=== PATIENT | male | born 1970 | race Caucasian/White ===

== ENCOUNTER → 2016-11-06 | Day surgery (SDC) | payer MEDICARE ==
[~2016-11-06] MED LIST: ASPIRIN325 MG PO; IMDUR ER TAB 3030 MG PO; INVOKANA 100 M100 MG PO; KLONOPIN1 MG PO; LINZESS145 MCG PO; LIPITOR TAB 2020 MG PO; LYRICA300 MG PO; PLAVIX 75 MG TA75 MG PO; PROVENTIL HFA 61 INH INH; RANITIDINE HCL300 M1 PO; TENORMIN 50 MG50 MG PO; ZOLOFT100 MG PO
== END | disposition home or self-care (01) ==
LOC: OR 07:48
PROVIDERS: Internal Medicine Gastroenterology
PROC: 0DJD8ZZ Inspection of Lower Intestinal Tract, Via Natural or Artificial Opening Endoscopic (ICD-10-PCS; principal; 2016-11-06 11:15)
DX: K64.0 First degree hemorrhoids (principal); K59.09 Other constipation; R10.31 Right lower quadrant pain; E66.3 Overweight; I10 Essential (primary) hypertension; E11.9 Type 2 diabetes mellitus without complications; F17.210 Nicotine dependence, cigarettes, uncomplicated; K75.89 Other specified inflammatory liver diseases; B18.2 Chronic viral hepatitis C; Z82.49 Family history of ischemic heart disease and other diseases of the circulatory system; Z79.82 Long term (current) use of aspirin; Z79.02 Long term (current) use of antithrombotics/antiplatelets; Z79.899 Other long term (current) drug therapy; Z88.8 Allergy status to other drugs, medicaments and biological substances; Z95.5 Presence of coronary angioplasty implant and graft
CPT/HCPCS: 82962; J7030